=== PATIENT | male | born 1955 | race Caucasian/White ===

== ENCOUNTER → 2025-02-12 | Outpatient (CLI) | payer OTHER, SELFPAY ==
--- NOTE | 2025-02-12 17:29 | CT_ITS ---
PROCEDURE: SOFT TISSUE NECK WITH CONTRAST 02/12/2025 REASON FOR EXAM: Swelling on right side x 1.5 years. TECHNIQUE: CT of the soft tissues of the neck from the orbits to the upper mediastinum with intravenous contrast. CONTRAST: Isovue 300 VOLUME: 75 mL One or more dose reduction techniques were used (e.g., Automated exposure control, adjustment of the mA and/or kV according to patient size, use of iterative reconstruction technique). RADIATION DOSE SUMMARY: CTDlvol: 16.78 mGy DLP: 561.64 mGycm COMPARISON: None FINDINGS: No pathologic enhancement within the visualized brain parenchyma. Airway: Patent Salivary glands: Parotid glands appear symmetric. Posterior to the right parotid gland, inferiorly, in the area of concern, there is a 0.5 cm AP by 0.8 cm transverse by 1.3 cm cc, well-marginated fat density identified, consistent with a lipoma. No pathologic enhancement is seen. The submandibular glands appear within normal limits. No pathologic enhancement of the palatine tonsils. Lymph nodes: Tiny scattered cervical lymph nodes are identified bilaterally, subcentimeter in size, within normal limits per size criteria. No cervical lymphadenopathy is appreciated. Thyroid: Homogeneous enhancement of the thyroid gland. No definite nodules are identified. Vasculature: Patent Orbits: Bilateral eye globes are symmetric. Retroconal fat is preserved bilaterally. Paranasal sinuses and mastoids: Well pneumatized Lung apices: Respiratory motion artifact. Clear Upper mediastinum: Unremarkable Bones: Minimal multilevel spondylotic changes. Other: CT/Soft Tissue Neck WITH Contrast IMPRESSION: 1. 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 No pathologic enhancement is seen. 2. No cervical lymphadenopathy is appreciated. 3. Additional findings, as detailed above. Reading [facility]
== END | disposition home or self-care (01) ==
LOC: CT 17:27
PROVIDERS: PCP Family Medicine
DX: R22.1 Localized swelling, mass and lump, neck (principal)
CPT/HCPCS: 70491; Q9967